=== PATIENT | female | born 1975 | race Caucasian/White ===

== ENCOUNTER 2017-09-29 04:58 | Emergency (ER) | payer MEDICARE, OTHER ==
[~2017-09-29] VITALS: Ht 152.4 cm; Wt 68.2 kg
[~2017-09-29 04:58] MED LIST: GLYB5TAB8 PO
[2017-09-29] MEDS ORDERED: METF500T4 PO (05:03)
[2017-09-29] MEDS ORDERED: METH10 PO ×2 (05:03→05:10)
[2017-09-29 05:07] LABS: GLUCOSE,POINT OF CARE 340 MG/DL (70-110)
[2017-09-29 06:05] VITALS: BP 150/84
== END 2017-09-29 06:41 | disposition home or self-care (01) ==
LOC: EMS 04:59
DX: J34.0 Abscess, furuncle and carbuncle of nose (principal); E11.9 Type 2 diabetes mellitus without complications
CPT/HCPCS: 82962; 99282; 99283

== ENCOUNTER 2017-10-04 03:45 | Emergency (ER) | payer MEDICARE, OTHER ==
[~2017-10-04] VITALS: Ht 157.5 cm; Wt 73.0 kg
[~2017-10-04 03:45] MED LIST changes: -GLYB5TAB8 PO; +METF500T4 PO; +METH10 PO
[2017-10-04 03:58] LABS: GLUCOSE,POINT OF CARE 388 MG/DL (70-110)
[2017-10-04] MEDS ORDERED: OxyCODONE HCL/ACETAMINOPHEN 5-325 MG TABLET PO ONE (04:45)
[2017-10-04] MEDS ORDERED: KETOROLAC TROMETHAMINE 30 MG/ML VIAL IVP ONE (04:45)
[2017-10-04] MEDS ORDERED: CEFTAROLINE 600 MG/D5W 250 ML IV ONE (04:45)
[2017-10-04 04:57] LABS: EOSINOPHILS % (AUTO) 10.4 % (1.0-6.0); HEMATOCRIT 37.1 % (36-46); HEMOGLOBIN 12.4 g/dL (12.0-16.0); LYMPHOCYTES # (AUTO) 2.5 K/uL (1.0-4.8); LYMPHOCYTES % (AUTO) 37.1 % (22.0-44.0); MEAN CORPUSCULAR HEMOGLOBIN 27.6 pg (26.0-34.0); MEAN CORPUSCULAR HGB CONC 33.5 G/dL (31.0-37.0); MEAN CORPUSCULAR VOLUME 82 fL (80-100); MONOCYTES # (AUTO) 0.6 K/uL (0.1-1.0); MONOCYTES % (AUTO) 8.4 % (2.0-9.0); NEUTROPHILS # (AUTO) 2.9 K/uL (1.8-7.7); NEUTROPHILS % (AUTO) 43.1 % (40.0-70.0); PLATELET COUNT (AUTO) 292 K/uL (150-450); RED BLOOD CELL COUNT(AUTO) 4.51 MIL/uL (4.00-5.20); RED CELL DISTRIBUTION WIDTH 17.6 % (11.5-14.5)
[2017-10-04 05:04] LABS: ANION GAP 9 mmol/L (8-16); CARBON DIOXIDE 28 mmol/L (22-29); CHLORIDE 99 mmol/L (98-107); CREATININE 0.75 mg/dL (0.60-1.30); GLOMERULAR FILTR. RATE CALC > 60 mL/min (>60); GLUCOSE,RANDOM 340 mg/dL (70-110); POTASSIUM 3.9 mmol/L (3.5-5.1); SODIUM SERUM 136 mmol/L (136-145); UREA NITROGEN, BLOOD 9 mg/dL (7-18)
[2017-10-04 05:10] LABS: ALANINE AMINOTRANSFERASE 11 U/L (12-78); ALBUMIN 3.1 g/dL (3.4-5.0); ALKALINE PHOSPHATASE 112 U/L (46-116); ASPARTATE AMINOTRANSFERASE 10 U/L (15-37); BILIRUBIN,TOTAL 0.2 mg/dL (0.1-1.0); TOTAL PROTEIN, SERUM 7.1 g/dL (6.4-8.2)
[2017-10-04] MEDS ORDERED: SODIUM CHLORIDE 0.9% 1,000 ML IV ONE (05:15)
[2017-10-04 05:43] VITALS: BP 116/80
== END 2017-10-04 06:25 | disposition home or self-care (01) ==
LOC: EMS 03:46
DX: J34.0 Abscess, furuncle and carbuncle of nose (principal); E11.65 Type 2 diabetes mellitus with hyperglycemia; F17.210 Nicotine dependence, cigarettes, uncomplicated
CPT/HCPCS: 36415; 80053; 82962; 85025; 96365; 96375; 99284; 99406; J0712; J1885

== ENCOUNTER 2017-11-01 15:58 | Emergency (ER) | payer MEDICARE, OTHER ==
[~2017-11-01] VITALS: Ht 154.9 cm; Wt 32.6 kg
[2017-11-01] MEDS ORDERED: VITAD50000 PO (16:06)
[2017-11-01] MEDS ORDERED: LIDOCAINE HCL/PF 1% 2 ML VIAL IM ONE (16:45)
[2017-11-01] MEDS ORDERED: INSULIN REGULAR, HUMAN 100 UNITS/ML SQ ONE (16:45)
[2017-11-01] MEDS ORDERED: HYDROCODONE/ACETAMINOPHEN 5-325 MG TABLET PO ONE (16:45)
[2017-11-01 16:59] VITALS: BP 151/84
== END 2017-11-01 17:55 | disposition home or self-care (01) ==
LOC: EMS 15:59
DX: S02.5XXA Fracture of tooth (traumatic), initial encounter for closed fracture (principal); M79.7 Fibromyalgia; G56.03 Carpal tunnel syndrome, bilateral upper limbs; F17.210 Nicotine dependence, cigarettes, uncomplicated; E11.9 Type 2 diabetes mellitus without complications; F11.10 Opioid abuse, uncomplicated; X58.XXXA Exposure to other specified factors, initial encounter; Y93.89 Activity, other specified; Y92.89 Other specified places as the place of occurrence of the external cause; Y99.8 Other external cause status
CPT/HCPCS: 64400; 96372; 99284; 99406; J1815; J3490

== ENCOUNTER 2017-11-03 03:51 | Emergency (ER) | payer MEDICARE, OTHER ==
[~2017-11-03] VITALS: Ht 167.6 cm; Wt 73.6 kg
[~2017-11-03 03:51] MED LIST changes: +VITAD50000 PO
[2017-11-03] MEDS ORDERED: ACET1TAB12 PO (03:57)
[2017-11-03 04:02] LABS: GLUCOSE,POINT OF CARE 358 MG/DL (70-110)
[2017-11-03] MEDS ORDERED: HYDROCODONE/ACETAMINOPHEN 5-325 MG TABLET PO ONE (05:15)
[2017-11-03] MEDS ORDERED: KETOROLAC TROMETHAMINE 60 MG/2 ML VIAL IM ONE (05:15)
[2017-11-03 06:02] VITALS: BP 126/89
== END 2017-11-03 06:02 | disposition home or self-care (01) ==
LOC: EMS 03:51
DX: K08.89 Other specified disorders of teeth and supporting structures (principal); E11.9 Type 2 diabetes mellitus without complications; F11.90 Opioid use, unspecified, uncomplicated; F17.210 Nicotine dependence, cigarettes, uncomplicated
CPT/HCPCS: 82962; 96372; 99283; 99406; J1885

== ENCOUNTER 2018-04-06 10:13 | Emergency (ER) | payer MEDICARE, OTHER ==
[~2018-04-06] VITALS: Ht 152.4 cm; Wt 80.0 kg
[~2018-04-06 10:13] MED LIST changes: +ACET1TAB12 PO; +METF-960 PO; -METF500T4 PO
[2018-04-06 10:29] LABS: GLUCOSE,POINT OF CARE 217 MG/DL (70-110)
[2018-04-06 11:47] LABS: BASOPHILS % (AUTO) 1.3 % (0.0-2.0); HEMATOCRIT 37.1 % (36-46); HEMOGLOBIN 12.7 g/dL (12.0-16.0); LYMPHOCYTES % (AUTO) 20.6 % (22.0-44.0); MEAN CORPUSCULAR HEMOGLOBIN 28.1 pg (26.0-34.0); MEAN CORPUSCULAR HGB CONC 34.2 G/dL (31.0-37.0); MEAN CORPUSCULAR VOLUME 82 fL (80-100); MONOCYTES # (AUTO) 0.7 K/uL (0.1-1.0); MONOCYTES % (AUTO) 7.2 % (2.0-9.0); NEUTROPHILS # (AUTO) 6.7 K/uL (1.8-7.7); NEUTROPHILS % (AUTO) 68.9 % (40.0-70.0); PLATELET COUNT (AUTO) 302 K/uL (150-450); RED BLOOD CELL COUNT(AUTO) 4.52 MIL/uL (4.00-5.20); RED CELL DISTRIBUTION WIDTH 16.5 % (11.5-14.5)
[2018-04-06 11:55] LABS: ANION GAP 8 mmol/L (8-16); CALCIUM, TOTAL 9.5 mg/dL (8.8-10.5); CARBON DIOXIDE 30 mmol/L (22-29); CHLORIDE 100 mmol/L (98-107); CREATININE 0.73 mg/dL (0.60-1.30); GLOMERULAR FILTR. RATE CALC > 60 mL/min (>60); GLUCOSE,RANDOM 200 mg/dL (70-110); POTASSIUM 3.9 mmol/L (3.5-5.1); SODIUM SERUM 138 mmol/L (136-145); UREA NITROGEN, BLOOD 5 mg/dL (7-18)
[2018-04-06 12:02] LABS: ALANINE AMINOTRANSFERASE 14 U/L (12-78); ALBUMIN 3.7 g/dL (3.4-5.0); ALKALINE PHOSPHATASE 151 U/L (46-116); ASPARTATE AMINOTRANSFERASE 43 U/L (15-37); CREATINE KINASE, TOTAL ONLY 69 U/L (26-192); D-DIMER 0.24 mg/L FEU (0.00-0.50); PROTHROMBIN TIME 10.2 SEC (9.4-11.6); TOTAL PROTEIN, SERUM 7.8 g/dL (6.4-8.2)
[2018-04-06 12:09] LABS: B-TYPE NATRIURETIC PEPTIDE 13 pg/mL (0-100)
[2018-04-06 12:20] LABS: APPEARANCE,URINE CLEAR (CLEAR); BILIRUBIN,URINE NEGATIVE (NEGATIVE); GLUCOSE, URINE (UA) NEGATIVE (NEGATIVE); KETONES,URINE TRACE mg/dL (NEGATIVE); LEUKOCYTE ESTERASE ,URINE NEGATIVE (NEGATIVE); NITRATE,URINE NEGATIVE (NEGATIVE); OCCULT BLOOD,URINE NEGATIVE (NEGATIVE); PH,URINE 5.5 (5.0-8.0); PROTEIN,URINE NEGATIVE (NEGATIVE)
[2018-04-06] MEDS ORDERED: IBUPROFEN 600 MG TABLET PO ONE (16:45)
[2018-04-06 17:36] VITALS: BP 120/73
== END 2018-04-06 17:54 | disposition home or self-care (01) ==
LOC: EMS 10:14
DX: R07.2 Precordial pain (principal); R91.8 Other nonspecific abnormal finding of lung field; E11.9 Type 2 diabetes mellitus without complications; F41.9 Anxiety disorder, unspecified; F17.210 Nicotine dependence, cigarettes, uncomplicated; Z98.51 Tubal ligation status; Z98.890 Other specified postprocedural states; Z79.84 Long term (current) use of oral hypoglycemic drugs
CPT/HCPCS: 85379; 93005; 99285